=== PATIENT | female | born 1950 ===

== ENCOUNTER 2016-05-09 19:16 | Emergency (ER) | payer MEDICARE, OTHER ==
[2016-05-09 19:45] VITALS: BP 137/104; PULSE 106; RESP 16; TEMP 97.9; O2SAT 98
[2016-05-09] MEDS ORDERED: Sodium Chloride 0.9% 1,000 ML IV STA (20:00)
--- NOTE | 2016-05-09 21:05 | ED PDOC ---
HPI: Abdomen Time Seen by Provider: 05/09/16 19:59 Chief Complaint (Nursing): Abdominal Pain Chief Complaint (Provider): abdominal pain History Per: Patient History/Exam Limitations: no limitations Onset/Duration Of Symptoms: Hrs (approximately 12x) Outside of [place] travel?: Yes Other Location:: lives in [place] Current Symptoms Are (Timing): Still Present Severity: Moderate Location Of Pain/Discomfort: Epigastric Associated Symptoms: Nausea, Vomiting (non bilious, non bloody) Additional Complaint(s): 65 year old female with a pertinent medical history of hyperthyroidism , anxiety, colon cancer status post total colectomy and colostomy (16 years ago ) presents to the ED with complaints of abdominal pain nausea, and multiple episodes of non bilious and non bloody vomiting that started this morning after her breakfast (approximately 12x hours [employer]). Patient is unable to tolerate any PO intake. She lives in [place] and is in [place] on vacation. She reports that when she has similar episodes of this pain and vomiting, she presents her own vials of toradol and promethazine so that the physicians (in [place]) can give it to her intravenously. PMD: patient does not recall. Past Medical History Reviewed: Historical Data, Nursing Documentation, Vital Signs Vital Signs: Last Vital Signs Temp 97.9 F 05/09/16 19:42 Pulse 106 H 05/09/16 19:42 Resp 16 05/09/16 19:42 BP 137/104 H 05/09/16 19:42 Pulse Ox 98 05/09/16 22:43 - Medical History PMH: Anxiety, Hyperthyroidism - Surgical History Other surgeries: colestomy, colostomy (2000) - Family History Family History: States: Unknown Family Hx - Social History Current smoker - smoking cessation education provided: No Alcohol: None Drugs: Denies - Home Medications Home Medications: Ambulatory Orders Medication Instructions Recorded Dicyclomine [Bentyl] 20 mg PO Q12 PRN #20 tab 05/09/16 Ondansetron ODT [Zofran ODT] 4 mg PO Q6 PRN #16 odt 05/09/16 - Allergies Allergies/Adverse Reactions: Allergies Allergy/AdvReac Type Severity Reaction Status Date / Time No Known Allergies Allergy Verified 05/09/16 19:41 Review of Systems ROS Statement: Except As Marked, All Systems Reviewed And Found Negative Gastrointestinal: Positive for: Nausea, Vomiting (non bilious, non bloody), Abdominal Pain. Negative for: Diarrhea Physical Exam - Reviewed Nursing Documentation Reviewed: Yes Vital Signs Reviewed: Yes - Physical Exam Appears: Positive for: Well, Non-toxic, Uncomfortable Head Exam: Positive for: ATRAUMATIC, NORMOCEPHALIC Skin: Positive for: Normal Color, Warm, Dry Cardiovascular/Chest: Positive for: Regular Rate, Rhythm, Chest Non Tender Respiratory: Positive for: Normal Breath Sounds. Negative for: Respiratory Distress Gastrointestinal/Abdominal: Positive for: Tenderness (epigastric ) Rectal: Positive for: Other (colostoy bag has formed stool) Neurologic/Psych: Positive for: Alert, Oriented (3x) - Laboratory Results Result Diagrams: 05/09/16 20:50 05/09/16 20:50 - ECG O2 Sat by Pulse Oximetry: 98 (RA) Pulse Ox Interpretation: Normal Medical Decision Making Medical Decision Makin:59 Initial impression: 65 year old female patient with abdominal pain, nausea, and vomiting insetting of multiple episodes and colostomy. Initial plan: * CMP * lipase * udip * CBC * sodium chloride 1,000ml IV 1,000mls/hr * pepcid 20mg IV * phenergan inj 25mg IV * toradol 10mg IV * zofran 4mg IV * urinalysis * reevaluation 22:30 Upon reevaluation, patient is feeling better, shows improvement, has no further abdominal pain, nausea, or vomiting. She is PO tolerant and stable upon discharge. Discussed results and plan for discharge with patient who expresses understanding. Counseling was provided regarding the diagnosis of gastritis and prognosis. Patient will be given Rx for bentyl and zofran. All questions answered and there is agreement with the plan to discharge home to [place] with instructions to follow up with her PMD. Patient is stable for discharge. Return if symptoms persist or worsen. Scribe Attestation: Documented by Breana Gaxiola, acting as a scribe for Fredy García MD. Provider Scribe Attestation: All medical record entries made by the Scribe were at my direction and personally dictated by me. I have reviewed the chart and agree that the record accurately reflects my personal performance of the history, physical exam, medical decision making, and the department course for this patient. I have also personally directed, reviewed, and agree with the discharge instructions and disposition. Disposition - Clinical Impression Clinical Impression: Gastritis, Abdominal pain Counseled Patient/Family Regarding: Studies Performed, Diagnosis, Need For Followup, Rx Given - Disposition Disposition Time: 22:30 Condition: IMPROVED Prescriptions: Dicyclomine [Bentyl] 20 mg PO Q12 PRN #20 tab PRN Reason: abdominal pain Ondansetron ODT [Zofran ODT] 4 mg PO Q6 PRN #16 odt PRN Reason: Nausea/Vomiting Instructions: Gastritis (ED) Print Language: [id number]
[2016-05-09 21:35] LABS: BASO % 0.4 % (0.0-2.0); EOS # 0.1 K/uL (0.0-0.7); EOS % 0.5 % (0.0-4.0); HEMATOCRIT 38.2 % (34.0-47.0); LYMPH # 1.2 K/uL (1.0-4.3); LYMPH % 11.3 % (20.0-40.0); MEAN CORPUSCULAR HEMOGLOBIN 31.3 pg (27.0-31.0); MEAN CORPUSCULAR HGB CONC 34.8 g/dL (33.0-37.0); MEAN PLATELET VOLUME 7.9 fl (7.2-11.7); MONO # 0.6 K/uL (0.0-0.8); MONO % 5.9 % (0.0-10.0); NEUT # 8.5 K/uL (1.8-7.0); NEUT % 81.9 % (50.0-75.0); RED CELL DISTRIBUTION WIDTH 13.2 % (11.5-14.5); WHITE BLOOD COUNT 10.3 K/uL (4.8-10.8)
[2016-05-09 21:41] LABS: ALB/GLOB RATIO 1.3 (1.0-2.1); ALKALINE PHOSPHATASE 107 U/L (38-126); ALT/SGPT 40 U/L (9-52); AST/SGOT 37 U/L (14-36); BILIRUBIN,TOTAL 0.6 mg/dl (0.2-1.3); BLOOD UREA NITROGEN 18 mg/dl (7-17); CALCIUM 10.4 mg/dL (8.4-10.2); CARBON DIOXIDE 21 mmol/L (22-30); CHLORIDE 105 mmol/L (98-107); GFR AFRICAN-AMERICAN > 60; GLUCOSE,RANDOM 118 mg/dL (65-105); LIPASE 109 U/L (23-300); SODIUM 146 mmol/l (132-148); TOTAL PROTEIN 8.4 G/DL (6.3-8.2)
[2016-05-10 00:44] LABS: RBC URINE 4 /hpf (0-3); URINE BILIRUBIN NEGATIVE (NEGATIVE); URINE BLOOD NEGATIVE (NEGATIVE); URINE COLOR YELLOW (YELLOW); URINE GLUCOSE (UA) NEG (Normal); URINE KETONE NEGATIVE (NEGATIVE); URINE LEUKOCYTE ESTERASE NEG Leu/uL (Negative); URINE PROTEIN NEGATIVE (NEGATIVE); URINE UROBILINOGEN 0.2-1.0 mg/dL (0.2-1.0); WBC URINE 5 /hpf (0-5)
== END 2016-05-09 23:13 | disposition home or self-care (01) ==
LOC: H.ER 19:16
DX: K29.70 Gastritis, unspecified, without bleeding (principal); R11.2 Nausea with vomiting, unspecified; Z93.3 Colostomy status; R10.9 Unspecified abdominal pain
CPT/HCPCS: 80053; 81003; 83690; 85025; 96374; 96375; 99283; J1885; J2550; J7040